=== PATIENT | female | born 1930 | race Caucasian/White ===

== ENCOUNTER → 2017-06-19 | Outpatient (CLI) | payer OTHER ==
[~2017-06-19] MED LIST: ASPIRIN ADULT L81 M1 PO; BACTRIM DS 8001 TA1 PO; FLUCONAZOLE100 MG PO; LISINOPRIL HCTZ1 TA1 PO; LISINOPRIL5 MG PO; MAGNESIUM OXID400 MG PO; MAGNESIUM400 MG PO; Nystatin Cream15 GM T; PYRIDIUM200 MG PO; VITAMIN D-32000 UNI1 PO
== END | disposition home or self-care (01) ==
LOC: RAD 14:21
DX: J44.9 Chronic obstructive pulmonary disease, unspecified (principal); F17.200 Nicotine dependence, unspecified, uncomplicated

== ENCOUNTER 2018-12-28 11:18 | Inpatient (IN) | payer OTHER ==
[~2018-12-28] VITALS: Ht 154.9 cm; Wt 53.6 kg
--- NOTE | ~2018-12-28 | PR ---
[place], [place] PROGRESS NOTE NAME: MODE FELDER UNIT #: [id number] ROOM: 507 DOCTOR: DARRYL ROSARIO MD BIRTHDATE: [birth year] DOS: 12/30/2018 SUBJECTIVE: The patient is still weak on the left side. OBJECTIVE: GENERAL APPEARANCE: The patient is alert and oriented x 3, in no visible distress. VITAL SIGNS: Blood pressure 124/84, breathing 16 times per minute, heart rate of 69 beats per minute, afebrile. HEENT AND NECK: Exam within normal limits. CARDIOVASCULAR SYSTEM: Heart rate is regular in rate and rhythm. S1 and S2 normally audible. LUNGS: Clear to auscultation. ABDOMEN: Soft, nontender. No obvious organomegaly. Bowel sounds are present. EXTREMITIES: Without significant cyanosis or edema. IMPRESSION: 1. The patient without any obvious brain mass, has been started on Eliquis by Cardiology for chronic atrial fibrillation. 2. Right occipital infarct with left hemiparesis. The patient working with Physical Therapy and needs to go to rehab. The patient was already on aspirin, which has been continued. 3. Urinary tract infection with Enterobacter intermedium, treated with ceftriaxone. 4. Chronic atrial fibrillation. Now, the patient is anticoagulated with apixaban. DARRYL ROSARIO MD CM:PNTRANS [id number] DARRYL ROSARIO MD 12/31/18 0410 interface
--- NOTE | ~2018-12-28 | PR ---
[place], [place] PROGRESS NOTE NAME: MODE FELDER UNIT #: [id number] ROOM: 507 DOCTOR: DARRYL ROSARIO MD BIRTHDATE: [birth year] DOS: 12/29/2018 SUBJECTIVE: The patient is weak on the left side and having difficulty with ambulation. OBJECTIVE: VITAL SIGNS: Blood pressure 146/50, heart rate of 66 beats per minute, breathing 16-18 times per minute, afebrile, temperature 98.1 degrees Fahrenheit. GENERAL APPEARANCE: The patient is alert and oriented x 3, in no visible distress. HEENT AND NECK: Exam within normal limits. CARDIOVASCULAR SYSTEM: Heart rate is regular in rate and rhythm. S1 and S2 normally audible. LUNGS: Clear to auscultation. ABDOMEN: Soft, nontender. No obvious organomegaly. Bowel sounds are present. EXTREMITIES: Without significant cyanosis or edema. NEUROLOGIC: Left hemiparesis. ASSESSMENT AND PLAN: 1. Acute right occipital infarct and left hemiparesis. The patient is working with Physical Therapy. I will also add occupational therapy to the treatment. 2. Possible occipital mass, which will be further evaluated with a contrast MRI of the brain as recommended by Radiology. 3. Urinary tract infection, gram-negative bacilli more than 100,000 colonies, is being treated with IV Rocephin. 4. Chronic atrial fibrillation. The patient is recommended anticoagulation if no brain mass is found on the MRI study. DARRYL ROSARIO MD CM:PNTRANS [id number] DARRYL ROSARIO MD 12/29/18 1749 interface
--- NOTE | ~2018-12-28 | PR ---
[place], [place] PROGRESS NOTE NAME: MODE FELDER UNIT #: [id number] ROOM: 507 DOCTOR: DARRYL ROSARIO MD BIRTHDATE: [birth year] DOS: 12/31/2018 SUBJECTIVE: The patient with stroke and left hemiparesis and disability. OBJECTIVE: VITAL SIGNS: Blood pressure 122/88, heart rate of 73 beats per minute, breathing normally, afebrile 98.2 degrees Fahrenheit. GENERAL APPEARANCE: Left-sided weakness. HEENT AND NECK: Exam within normal limits. CARDIOVASCULAR SYSTEM: Heart rate is regular in rate and rhythm. S1 and S2 normally audible. LUNGS: Clear to auscultation. ABDOMEN: Soft, nontender. No obvious organomegaly. Bowel sounds are present. EXTREMITIES: Without significant cyanosis or edema. IMPRESSION: 1. The patient with significant disability and difficulty with ambulation or even transfer, is waiting for residential transfer. 2. Right occipital acute infarct with disability. 3. Chronic atrial fibrillation with controlled heart rates with treatment. The patient now anticoagulated with apixaban. 4. Urinary tract infection with Enterobacter intermedium, treated with ceftriaxone. DARRYL ROSARIO MD CM:SHELDONTRANS 15 [phone] DARRYL ROSARIO MD 12/31/182050 interface
--- NOTE | ~2018-12-28 | EKG ---
[place], [place] ELECTROCARDIOGRAM REPORT NAME: MODE FELDER UNIT #: [id number] ROOM: 507 DOCTOR: ANSHUL DRAFT REPORT BIRTHDATE: [birth year] [facility] Test Date: 2018-12-28 Test Time: 12:01:32 Pat Name: MODE FELDER Department: Room: 7 Gender: F Publication Designer: Leyla Perez : 1930 Requested By: GREG MORRELL Order Number: [id number] Reading MD: Nick Doty MD Measurements Intervals [place] Rate: 55 P: CA: QRS: -14 QRSD: 76 T: 2 QT: 394 QTc: 377 Interpretive Statements Atrial fibrillation Inferior infarct, old No previous ECG available for comparison Electronically Signed On 12-30-2018 7:55:26 PDT by Nick Doty MD CM:EKGRPT:ELECTROCARDIOGRAM REPORT [id number] GREG MORRELL MD EPIPHANY DRAFT REPORT GREG MORRELL MD
--- NOTE | ~2018-12-28 | DS ---
[place], [place] DISCHARGE SUMMARY NAME: MODE FELDER UNIT #: [id number] ROOM: 507 DOCTOR: DARRYL ROSAIRO MD BIRTHDATE: [birth year] DOS: 12/28/2018 DISCHARGE DIAGNOSES: 1. 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 2. Ambulatory dysfunction. 3. Chronic atrial fibrillation. The patient is now anticoagulated with apixaban. 4. Urinary tract infection with Enterobacter intermedium, treated with IV antibiotics. HOSPITAL COURSE: The patient presented to the Emergency Department with left-sided weakness for several days. She had a completed right occipital infarct, which later on showed up on the MRI of the brain. The patient and family had decided against transfer to a stroke center or tertiary care facility. She wanted to be treated conservatively. The patient was admitted, worked with Physical Therapy and now arrangements have been completed to send her to [facility] for rehab. Right occipital acute infarct, which had completed because the patient had these symptoms and she was ignoring them for several days including inability to ambulate because she was living on her own. The patient has grade 5- weakness and incoordination on the left side from the right occipital infarct and she worked with Physical Therapy. Chronic atrial fibrillation. Cardiology was consulted and they found the patient appropriate for anticoagulation with apixaban, which was started. The patient was found to have urinary tract infection with Enterobacter intermediate, which was treated with IV Rocephin. DISCHARGE MANAGEMENT: Apixaban 2.5 mg b.i.d., aspirin 81 mg a day. Consult OT and PT, take fall precautions. [place], [place] DISCHARGE SUMMARY NAME: MODE FELDER UNIT #: [id number] ROOM: 507 DOCTOR: DARRYL ROSARIO MD BIRTHDATE: [birth year] DARRYL ROSARIO MD CM:DISCHARG [id number] DARRYL ROSARIO MD 01/02/19 0059 interface
--- NOTE | ~2018-12-28 | WRIGHTHP ---
[place], [place] PATIENT HISTORY AND PHYSICAL EXAM [id number] UNIT #: [id number] ROOM: 507 DOCTOR: DARRYL ROSARIO MD BIRTHDATE: [birth year] DOS: 12/28/2018 HISTORY OF PRESENT ILLNESS: The patient came into the Emergency Department with 3-day complaints of some difficulty with speech. Two days ago, the patient could not walk anymore. The patient lives by herself and was unable to get help. In the ER, the patient was found to have left-sided weakness and difficulty with ambulation. CAT scan of the head did not show any acute abnormality, but chronic small vessel ischemic changes. After a long discussion with the patient and her family, she decided not to be transferred to a tertiary care center, but be treated conservatively at [facility]. No chest pain, no GI or urinary symptoms. The patient's speech is normal. She is a little forgetful and she was also found to have a urinary tract infection. PAST MEDICAL HISTORY: History of chronic of chronic atrial fibrillation. REVIEW OF SYSTEMS: CARDIOVASCULAR SYSTEM: No chest pains or palpitations. GASTROINTESTINAL: No nausea, vomiting, diarrhea or constipation. RESPIRATORY: No increasing shortness of breath or wheezing. FAMILY HISTORY: Noncontributory. HOME MEDICATIONS: The patient takes aspirin at home and vitamin D. ALLERGIES: CODEINE. PHYSICAL EXAMINATION: GENERAL: Alert and oriented x 3, in no visible distress, generalized weakness. EXTREMITIES: Grade 5- weakness on the left side and unable to ambulate. LABORATORY DATA: CT of the head as mentioned above. Normal CBC. Hemoglobin is slightly low at 11. PT, PTT baseline. Normal serum electrolytes. IMPRESSION AND PLAN: 1. The patient apparently with left hemiparesis with grade 5- weakness, but normal speech and history of chronic of chronic atrial fibrillation. The patient was not anticoagulated because of her recurrent falls, but I am getting Cardiology consult to see what they would what Plavix versus anticoagulation with Coumadin or similar medication. 2. Left hemiparesis, inability to walk with grade 5- weakness. The patient was started on physical therapy and will require rehabilitation. 3. I will get an MRI of the brain tomorrow to look for the infarct. No signs of bleeding on CT of the head. 4. Chronic atrial fibrillation with controlled heart rates. Consider anticoagulation. Cardiology consulted. 5. Urinary tract infection to be treated with Rocephin. Urine cultures pending. [place], [place] PATIENT HISTORY AND PHYSICAL EXAM NAME: MODE FELDER UNIT #: [id number] ROOM: [facility] DOCTOR: DARRYL ROSARIO MD BIRTHDATE: [birth year] DARRYL ROSARIO MD CM:HISPHYS:PATIENT HISTORY AND PHYSICAL EXAMINATION 20 03 DARRYL ROSARIO MD 12/28/182202 interface
[2018-12-28 11:23] VITALS: BP 134/67
[2018-12-28 12:36] LABS: BASO % 0.6 % (0.0-1.0); EOS # 0.1 10*3/uL (0.0-0.4); HEMATOCRIT 35.4 % (37.0-47.0); LYMPH # 0.7 10*3/uL (1.3-4.4); LYMPH % 11.3 % (27.0-41.0); MEAN CELL VOLUME 91.9 fl (81.0-99.0); MEAN CORPUSCULAR HGB 28.6 pg (27.0-31.0); MEAN CORPUSCULAR HGB CONC 31.1 g/dl (33.0-37.0); MEAN PLATELET VOLUME 8.9 fl (9.6-12.3); MONO # 0.6 10*3/uL (0.1-1.0); MONO % 10.4 % (3.0-9.0); NEUT # 4.7 10*3/uL (2.3-7.9); NEUT % 76.4 % (47.0-73.0); PLATELET COUNT AUTOMATED 294 10*3/uL (130-400); RED BLOOD COUNT 3.85 10*6/uL (4.10-5.10); RED CELL DISTRI WIDTH 16.3 % (0-14.5); WHITE BLOOD COUNT 6.2 10*3/uL (4.8-10.8)
[2018-12-28 12:43] LABS: ACT PARTIAL THROMBO TIME 24.9 SECONDS (20.8-31.5)
[2018-12-28 12:46] VITALS: BP 126/76
[2018-12-28 12:52] LABS: ALBUMIN 2.6 gm/dl (3.1-4.5); ALKALINE PHOSPHATASE 93 U/L (45-117); BUN 16 mg/dl (7-24); CHLORIDE 103 mmol/L (98-107); CREATININE 0.94 mg/dL (0.55-1.02); POTASSIUM 5.1 mmol/L (3.5-5.1); SGOT/AST 19 IU/L (3-35); SGPT/ALT 12 U/L (12-78); SODIUM 137 mmol/L (136-145); TOTAL PROTEIN 6.8 gm/dL (6.4-8.2)
[2018-12-28 12:57] LABS: TROPONIN I < 0.015 ng/ml (<0.045)
[2018-12-28 13:07] LABS: BILIRUBIN NEGATIVE (NEGATIVE); CLARITY CLOUDY (CLEAR); COLOR YELLOW (YELLOW); GLUCOSE NEGATIVE (NEGATIVE); KETONE NEGATIVE (NEGATIVE); SPECIFIC GRAVITY 1.005 (1.005-1.030)
[2018-12-28 13:08] LABS: BLOOD 2+ (NEGATIVE); LEUKO ESTERASE 3+ (NEGATIVE); NITRITE POSITIVE (NEGATIVE); PH 7.5 (5.0-9.0); UROBILINOGEN 0.2 E.U./dl (0.2-1.0)
[2018-12-28 13:12] LABS: RBC TNTC rbc/hpf (0-2); WBC TNTC wbc/hpf (0-5)
[2018-12-28 13:13] LABS: BACTERIA 4+
[2018-12-28 14:48] VITALS: BP 140/71
--- NOTE | 2018-12-28 14:55 | NUR ---
A 88, admitted to 5E, under the services of Dr. ABRAHAM CALIXTO,DARRYL Jarquin with a diagnosis of UTI, AFIB, STROKE LIKE SYMPTOMS. Chief complaint is WEAKNESS. Patient arrived via bed from ER. Monitor applied. Initial assessment completed. Vital signs taken and recorded. DR. ABRAHAM CALIXTO,DARRYL Jarquin notified of admission to the unit. Orders received. See assessment for past medical history, medications and allergies. Patient and/or family oriented to unit. [address] visitation policy reviewed. Clothing/patient valuable form completed. SKIN INTACT WITH NO WOUNDS. FLU AND PNEUMONIA VACCINATIONS CURRENT. MARIANA MARTINEZ
[2018-12-28 16:00] VITALS: BP 154/83
--- NOTE | 2018-12-28 16:29 | NUR ---
Patient resting quietly with no c/o discomfort. Respirations easy and regular. Vital signs stable. No overt distress. CHARLI AGUIRRE
--- NOTE | 2018-12-28 18:17 | NUR ---
MESSAGE LEFT FOR DR MELENDEZ CONSULT.
[2018-12-28 20:00] VITALS: BP 133/65
--- NOTE | 2018-12-28 20:20 | NUR ---
PT RESTING IN BED. NO DISTRESS NOTED. WILL MONITOR
[2018-12-29] VITALS: BP 130/64
--- NOTE | 2018-12-29 06:15 | NUR ---
PT RESTING IN BED. NO DISTRESS NOTED. WILL MONITOR
--- NOTE | 2018-12-29 07:58 | NUR ---
PHYSICAL THERAPY Nursing screen received. PT orders also received. Thank you. Rose García,PT
[2018-12-29 08:00] VITALS: BP 160/74
[2018-12-29 12:00] VITALS: BP 146/50
--- NOTE | 2018-12-29 13:00 | NUR ---
PHYSICAL THERAPY Patient evaluated on 5, full evaluation to follow. Continue with PT as per plan of care with fall, alarms, severe screaming and apprehension with any mobility attempts and acute debility precautions. Will require SNF. PAtient is high complexity via chart review, tests and evaluation: [id number]. Thank you for this referral. Rose García,PT
--- NOTE | 2018-12-29 13:22 | NUR ---
Mortar Maker in to talk to patient. Patient states lives at HOME with ALONE. There are NO steps in the home. Physician: ABRAHAM Pharmacy: [facility] Home health services: NONE Patient's level of ADLs: INDEPENDENT Patient has working utilities: YES DME: NONE Follow-up physician's appointment after d/c: PREFERS TO MAKE HER OWN APPOINTMENT ON DISCHARGE Does patient want to access PORTAL?: NO Discharge plan [facility] FAMILY IN ROOM AND STATE PT NEEDS MORE HELP. THEY ARE THINKING ABOUT PT GOING TO [facility]. FIRST DAUGHTER IS REQUESTING A STAY AT [facility] HOWEVER HER INSURANCE IS OUT OF NENTWORK WITH [facility]. DAUGHTER INFORMED THAT HER CHOICES WERE [facility] [place] OR [facility] IN [place]. STATES SHE WANTS TO TALK IT OVER WITH HER SISTER AND WILL LET ME KNOW WHERE THEY WOULD LIKE HER TO GO. PT HAS NO OTHER NEEDS AT THIS TIME. WILL CONTINUE TO FOLLOW. . MARCOS POLLOCK
--- NOTE | 2018-12-29 13:26 | NUR ---
Occupational Therapy evaluation completed on 5 with full eval to follow. Precautions include fall risk,extreme fear of movement screaming out with fear, max +2 transfers, decreased LUE/LLE sensation and awareness of left, impaired ADls, mobility and high complexity level 26230 via chart review, testing and evaluation. Recommend OT per POC and inpatient rehab v.s. SNF to enable return home alone at independent level w/ wh walker. Thank you for this referral. Mayda Mcmullen OTR/L
[2018-12-29 16:00] VITALS: BP 141/77
--- NOTE | 2018-12-29 19:30 | NUR ---
UPON BEDSIDE REPORT, PATIENT ALERT AND VISITING WITH FAMILY. COOPERATIVE. CALL LIGHT WITHIN REACH. NO VOICED COMPLAINTS. BED ALARM MAINTAINED FOR SAFETY
[2018-12-29 20:00] VITALS: BP 148/66
--- NOTE | 2018-12-29 20:17 | NUR ---
24 HR chart check completed.
--- NOTE | 2018-12-29 21:30 | NUR ---
RESTING IN BED WITH NO ACUTE DISTRESS NOTED. RESPIRATIONS EASY. LUNGS DIMINISHED, CLEAR. PULSE OX 98% RA. LEFT TRUCK DRIVER INSTRUCTOR SLIGHTLY WEAKER THAN RIGHT. TRACE BLE EDEMA. CALL LIGHT WITHIN REACH. NO VOICED COMPLAINTS. BED ALARM MAINTAINED FOR SAFETY
--- NOTE | 2018-12-29 22:35 | NUR ---
PATIENT REPEATEDLY CLIMBING OOB. BECOMING AGITATED AND UNCOOPERATIVE WITH STAFF. DISORIENTED TO TIME AND PLACE, ADAMENT THAT SHE IS NOT IN THE HOSPITAL. 20 MINS SPENT ATTEMPTING TO REORIENT PATIENT WITH LITTLE SUCCESS. PATIENT ASSISTED TO BED FOR COMFORT AND BED ALARM APPLIED. CLOSE OBSERVATION MAINTAINED
[2018-12-30] VITALS: BP 142/72
--- NOTE | 2018-12-30 | NUR ---
RESTING WITH EYES CLOSED. RESPIRATIONS EASY. VSS. CALL LIGHT WITHIN REACH. BED ALARM MAINTAINED
--- NOTE | 2018-12-30 03:30 | NUR ---
AWAKE, RESTLESS. UNCOOPERATIVE WITH STAFF, CURSING. 1:1 PROVIDED IN ATTEMPTS TO REORIENT WITH LITTLE TO NO EFFECTIVENESS. BED ALARM MAINTAINED FOR SAFETY
--- NOTE | 2018-12-30 05:00 | NUR ---
REMAINS AWAKE, RESTLESS.
--- NOTE | 2018-12-30 06:00 | NUR ---
SLEEPING. BED ALARM MAINTAINED FOR SAFETY
--- NOTE | 2018-12-30 07:18 | NUR ---
In to see patient to discuss discharge options. Discussed acute rehab at [facility] to address stroke like symptoms and left sided weakness VS snf placement. Patient agreed to fax information. Contacted facility and faxed referral, will require precert.
[2018-12-30 08:00] VITALS: BP 114/70
--- NOTE | 2018-12-30 10:30 | NUR ---
PT OFF FLOOR TO MRI FOR HEAD SCAN.
--- NOTE | 2018-12-30 11:35 | NUR ---
PHYSICAL THERAPY Patient seen this am 1:1 for therapy visit and was supine in bed with her daughter Flaca present upon therapist arrival. Patient was very pleasant this morning, voicing no new c/o's and transfers supine to sit EOB with Min A. Patient tolerated static EOB sit x several minutes then performed several sit to stand transfers, Min A, requiring v/c for proper hand placement. Patient able to take 3-4 fwd/bkwd steps HEALTH CARE FACILITY ADMINISTRATOR/MIN but was tenative, however after a seated rest break attempted gait training with use of std walker, 15'x 1, CGA/Min, demonstrating very cautious alan, decreased stride and unsteady balance during 180 turn. Patient returned to supine in bed and remained with call light, tray table and cell phone. Will continue per POC as tolerated, total treatment time 14 minutes. Lm Leija, RESERVOIR ENGINEER
--- NOTE | 2018-12-30 11:42 | NUR ---
Daughter requesting referral to [facility] stating they called and were told patients insurance should be accepted there. Contacted facility and faxed referral. Will require precert.
--- NOTE | 2018-12-30 11:50 | NUR ---
OT NOTE Pt was seen this A.M. 1:1 for 20 minute OT session. Upon arrival pt was supine in bed. Pt identified by name and and had no complaints at this time. Pt transferred supine to sit EOB with Dunia. Sit to stand completed from bed level with Dunia X 2 and use of standard walker for UE support. Functional mobility completed around the room with CGA and use of standard walker. Challenged pt's dynamic sitting balance while having her weight shift, cross midline, and reach over all planes. Pt was able to maintain F+ sitting balance throughout. While sitting EOB challenged pt's semsory awareness while having pt tell what finger was being touched while eyes were closed. Tested with RUE first for full understanding with task presented. On R hand pt got 5/5 correct and on the L 3/5 correct. Pt transferred sit to supine with modA. Pt was left supine in bed with call light in hand, tray table in place, and bed alarm activated for safety. Continue with rec D/C plan to inpatient rehab versus SNF. DAYA Isaacs/Kobe
[2018-12-30 12:00] VITALS: BP 101/56
--- NOTE | 2018-12-30 12:17 | NUR ---
CASE MANAGEMENT IN TO SEE PT, DAUGHTER ENDER PRESENT, STATES THEY WANT [facility]. PMO BUSINESS ANALYST INFORMED.
--- NOTE | 2018-12-30 15:08 | NUR ---
[facility] is in network with patients insurance and will accept this patient. Family has requested a private room only and one will not be available until Saturday01/02/19 or Saturday01/03/19. Requires precert. Waiting for auth.
--- NOTE | 2018-12-30 15:45 | NUR ---
OCCUPATIONAL THERAPY CO-SIGN I approve of the Occupational Therapy notes written above. SHAW BARTH OTR/Kobe
[2018-12-30 15:57] VITALS: BP 108/56
[2018-12-30 20:00] VITALS: BP 124/84
[2018-12-31] VITALS: BP 132/63
[2018-12-31 08:00] VITALS: BP 138/70
--- NOTE | 2018-12-31 11:20 | NUR ---
OT NOTE Pt was seen this A.M. 1:1 for 23 minute OT session. Upon arrival pt was supine in bed. Pt identified by name and and had no complaints at this time. Pt transferred supine to sit EOB with Dunia. While sitting EOB challenged pt's dynamic sitting balance needed for increased I and enhanced safety while weight shifting, crossing midline, and reaching over all planes of motion. Pt was able to maintain G-/F+ sitting balance throughout. Multiple sit to stand transfers completed from bed level with Dunia X 2 and use of standard walker for UE support. Functional mobility completed around the room with CGA and use of standard walker. Pt had quick onset of fatigue requiring seated rest break breaks. While sitting EOB challenged pt's LUE sensation to touch. Trialed on R hand first to ensure proper understanding of instructions pt got 4/5 correct. On L hand with moderate amount of touch applied pt was able to get 2/5 correct. Pt transferred back into bed sit to supine with modA, There she was left with call light in hand, tray table in place, and bed alarm activated for safety. Continue with rec D/C plan to inpatient rehab versus SNF. DAYA Isaacs/Kobe
--- NOTE | 2018-12-31 11:25 | NUR ---
PHYSICAL THERAPY informed consent given, pt identified by name and . pt presented supine in bed. supine to sit SBA. STS and stand to sit x2 trials modA. Static standing balance 2min total: 1min with B UE supported by AD, the next minute 1 hand at side off of AD, SBA pt able to correct self with LOB. Walked 20ft standard walker CGA, v/c sequencing. Sit to supine Dunia, bed mobility maxAx2. Ended treatment pt supine in bed, call light and belongings in reach, bed alarm on. 1:1 treatment with DENTAL DETAIL REPRESENTATIVE 15min. RUSTAM MONTERO DENTAL DETAIL REPRESENTATIVE
[2018-12-31 12:00] VITALS: BP 126/76
--- NOTE | 2018-12-31 13:22 | NUR ---
Patient updated clinicals and therapy notes faxed to [facility] to start precert. waiting for auth.
--- NOTE | 2018-12-31 13:40 | NUR ---
REFERRAL SENT [facility] PER FAMILY REQUEST.
[2018-12-31 16:00] VITALS: BP 122/88
[2018-12-31 20:00] VITALS: BP 125/67
[2019-01-01] VITALS: BP 116/50
[2019-01-01 08:00] VITALS: BP 130/70
--- NOTE | 2019-01-01 09:53 | NUR ---
OT NOTE Pt was seen this A.M. 1:1 for 23 minute OT session. Upon arrival pt was supine in bed. Pt identified by name and and had complaints of mod pain in her LLE. Pt transferred supine to sit EOB with Dunia for assist with UB. Sit to stand completed from bed level with Dunia and use of standard walker for UE support. Functional mobility completed into the bathroom with CGA and use of standard walker, pt had two LOB that occured backwards that was corrected with Dunia. Pt required standing rest breaks throughout due to quick onset of fatigue. There she transferred on to standard commode with Dunia due to fear of falling and being "guarded". Clothing management completed with Dunia and toilet hygiene completed with supervision while seated. Pt then transferred off standard commode with modA due to low surface. Pt then stood sink side while washing her hands with CGA for safety. Functional mobility completed back to the EOB. Pt then transferred sit to supine with Dunia X 2. There she was left with call light in hand, tray table in place, and bed alarm activated for safety. Continue with rec D/C plan to inpatient rehab versus SNF. DAYA Isaacs/Kobe
--- NOTE | 2019-01-01 10:23 | NUR ---
PHYSICAL THERAPY informed consent given, pt identified by name and . pt presented supine in bed. supine to sit SBA. STS and stand to sit CGA v/c safe hand placement to avoid injury. walked 20ft x2 Dunia seated rests in between. first walk pt used standard walker requiring v/c for sequencing. Second walk pt used wh walker and had difficulty staying inside the JAYNE of the walker, requiring v/c for sequencing and direction. sit to supine modA, bed mobility maxAx2. Ended treatment pt supine in bed, call light and belongings in reach, bed alarm on. 1:1 treatment with FIRE EQUIPMENT INSPECTOR 20min RUSTAM MONTERO PTA
[2019-01-01 12:00] VITALS: BP 120/62
--- NOTE | 2019-01-01 12:03 | NUR ---
Patient has received auth for [facility] and can go if medically stable for discharge.
--- NOTE | 2019-01-01 13:03 | NUR ---
PT HAS RECIEVED AUTH FOR [facility] AND CAN GO WHEN MEDICALLY STABLE.
[2019-01-01 16:00] VITALS: BP 101/60
--- NOTE | 2019-01-01 16:01 | NUR ---
OCCUPATIONAL THERAPY CO-SIGN I approve of the Occupational Therapy notes written above. SHAW BARTH OTR/Kobe
[2019-01-01] MEDS ORDERED: ELIQUIS5 M1 PO (18:57)
--- NOTE | 2019-01-01 20:20 | NUR ---
PATIENT YELLING "YOU DUMB BH" UPON ENTERING ROOM. STATED TO PATIENT WHO I AM AND REPLIES "TO HELL YOU ARE, YOU ARENT TOUCHING ME. I HAVE THE DIRECTOR OF EARLY CHILDHOOD EDUCATION COMING ALL THE WAY FROM [place]" TRIED TO REORIENTED PATIENT. UNSUCCESSFUL. WILL NOT LET ME COMPLETE ASSESSMENT AT THIS TIME. SITTING UP IN CHAIR. BODY ALARM ON. WILL MONITOR.
--- NOTE | 2019-01-01 21:23 | NUR ---
NURSE TO NURSE REPORT GIVEN TO RN AT [facility] AT THIS TIME.
--- NOTE | 2019-01-01 22:05 | NUR ---
PATIENT RESTING OOB IN CHAIR AT THIS TIME. BODY ALARM ON. TOOK 2200 MEDICATION WITHOUT ISSUE.
--- NOTE | 2019-01-01 22:32 | NUR ---
PATIENT LEFT IN CARE OF [facility] AT THIS TIME. HEP LOCK WAS REMOVED AND PRESSURE DRESSING APPLIED. VERBALIZED UNDERSTANDING OF DISCHARGE INSTRUCTIONS.
--- NOTE | 2019-01-02 07:42 | NUR ---
PHYSICAL THERAPY CO-SIGN I approve of the Phyical Therapy notes written above. PARVEZ EUCEDA PT
== END 2019-01-01 22:33 | disposition other institution (70) | DRG 65 ==
LOC: ED 11:18 → EDHOLD 14:05 → 5E 14:05
PROVIDERS: Emergency Medicine; ADMIT Internal Medicine
DX: I63.89 Other cerebral infarction (principal); G81.94 Hemiplegia, unspecified affecting left nondominant side; E44.0 Moderate protein-calorie malnutrition; N30.00 Acute cystitis without hematuria; Z79.899 Other long term (current) drug therapy; Z66 Do not resuscitate; B96.89 Other specified bacterial agents as the cause of diseases classified elsewhere; Z51.5 Encounter for palliative care; R29.6 Repeated falls; I48.2 Chronic atrial fibrillation; E66.9 Obesity, unspecified; M19.90 Unspecified osteoarthritis, unspecified site; Z88.5 Allergy status to narcotic agent; Z68.22 Body mass index [BMI] 22.0-22.9, adult; Z87.440 Personal history of urinary (tract) infections; Z90.710 Acquired absence of both cervix and uterus; Z82.49 Family history of ischemic heart disease and other diseases of the circulatory system; Z79.82 Long term (current) use of aspirin

== ENCOUNTER 2019-04-13 07:34 | Emergency (ER) | payer OTHER ==
[~2019-04-13] VITALS: Ht 157.4 cm; Wt 60.3 kg
[~2019-04-13 07:34] MED LIST changes: +ELIQUIS5 M1 PO
[2019-04-13 07:41] VITALS: BP 156/83
== END 2019-04-13 09:32 | disposition home or self-care (01) ==
LOC: ED 07:34
DX: S00.83XA Contusion of other part of head, initial encounter (principal); S50.311A Abrasion of right elbow, initial encounter; I48.91 Unspecified atrial fibrillation; E66.9 Obesity, unspecified; Z86.73 Personal history of transient ischemic attack (TIA), and cerebral infarction without residual deficits; Z90.710 Acquired absence of both cervix and uterus; Z88.5 Allergy status to narcotic agent; Z79.82 Long term (current) use of aspirin; Z79.899 Other long term (current) drug therapy; W05.0XXA Fall from non-moving wheelchair, initial encounter; Y93.89 Activity, other specified; Y92.128 Other place in nursing home as the place of occurrence of the external cause; Y99.8 Other external cause status

== ENCOUNTER 2021-04-11 14:55 | Inpatient (IN) | payer MEDICARE ==
[~2021-04-11] VITALS: Ht 152.4 cm; Wt 62.6 kg
[2021-04-11 14:56] VITALS: BP 179/79
[2021-04-11 15:38] VITALS: BP 150/90
[2021-04-11 15:40] LABS: BASO % 0.6 % (0.0-1.0); EOS % 0.4 % (1.0-4.0); HEMATOCRIT 38.6 % (37.0-47.0); LYMPH # 0.5 10*3/uL (1.3-4.4); LYMPH % 9.8 % (27.0-41.0); MEAN CELL VOLUME 91.9 fl (81.0-99.0); MEAN CORPUSCULAR HGB 28.6 pg (27.0-31.0); MEAN CORPUSCULAR HGB CONC 31.1 g/dl (33.0-37.0); MEAN PLATELET VOLUME 9.5 fl (9.6-12.3); MONO # 0.1 10*3/uL (0.1-1.0); MONO % 2.2 % (3.0-9.0); NEUT # 4.7 10*3/uL (2.3-7.9); NEUT % 86.8 % (47.0-73.0); PLATELET COUNT AUTOMATED 235 10*3/uL (130-400); RED CELL DISTRI WIDTH 13.9 % (0-14.5); WHITE BLOOD COUNT 5.4 10*3/uL (4.8-10.8)
[2021-04-11 16:06] LABS: ALBUMIN 3.7 gm/dl (3.1-4.5); ALKALINE PHOSPHATASE 89 U/L (45-117); BUN 33 mg/dl (7-24); CHLORIDE 105 mmol/L (98-107); CREATININE 1.06 mg/dL (0.55-1.02); LIPASE 90 U/L (73-393); POTASSIUM 4.9 mmol/L (3.5-5.1); SGOT/AST 23 IU/L (3-35); SGPT/ALT 18 U/L (12-78); SODIUM 138 mmol/L (136-145); TOTAL PROTEIN 8.1 gm/dL (6.4-8.2)
[2021-04-11 16:24] LABS: TROPONIN I < 0.015 ng/ml (<0.045)
[2021-04-11 16:39] LABS: BILIRUBIN Negative (Negative); BLOOD 3+ (Negative); CLARITY Cloudy (Clear); COLOR Yellow (Yellow); GLUCOSE Negative (Negative); KETONE 1+ (Negative); LEUKO ESTERASE Negative (Negative); NITRITE Negative (Negative); PH 7.5 (4.5-8.0); SPECIFIC GRAVITY 1.015 (1.001-1.030)
[2021-04-11 17:11] LABS: BACTERIA 1+; EPITHELIAL CELLS 16-20; RBC TNTC rbc/hpf (0-2)
[2021-04-11 18:46] VITALS: BP 158/89
[2021-04-11 21:01] VITALS: BP 156/84
[2021-04-11 21:38] VITALS: BP 144/80
[2021-04-11] MEDS ORDERED: PHARMASSURE FO0.4 MG PO (22:28)
[2021-04-11] MEDS ORDERED: FERROUS SULFAT325 MG PO (22:29)
[2021-04-11] MEDS ORDERED: TYLENOL325 M1 PO (22:30)
[2021-04-11] MEDS ORDERED: ZOFRAN4 MG PO (22:31)
[2021-04-12] VITALS (9 sets, daily range): BP systolic 141–169; BP diastolic 62–96
[2021-04-12 05:39] LABS: BUN 26 mg/dl (7-24); CHLORIDE 111 mmol/L (98-107); CREATININE 0.97 mg/dL (0.55-1.02); POTASSIUM 4.1 mmol/L (3.5-5.1); SGOT/AST 22 IU/L (3-35); SGPT/ALT 14 U/L (12-78); SODIUM 140 mmol/L (136-145); TOTAL PROTEIN 6.8 gm/dL (6.4-8.2)
[2021-04-12 05:45] LABS: ALKALINE PHOSPHATASE 72 U/L (45-117); FREE T4 1.08 ng/dl (0.76-1.46)
[2021-04-12 06:55] LABS: BASO # 0.1 10*3/uL (0.0-0.1); BASO % 0.6 % (0.0-1.0); EOS % 0.5 % (1.0-4.0); HEMATOCRIT 34.5 % (37.0-47.0); LYMPH # 0.9 10*3/uL (1.3-4.4); LYMPH % 11.2 % (27.0-41.0); MEAN CELL VOLUME 92.2 fl (81.0-99.0); MEAN CORPUSCULAR HGB 28.9 pg (27.0-31.0); MEAN CORPUSCULAR HGB CONC 31.3 g/dl (33.0-37.0); MEAN PLATELET VOLUME 10.3 fl (9.6-12.3); MONO # 0.8 10*3/uL (0.1-1.0); NEUT # 6.1 10*3/uL (2.3-7.9); NEUT % 77.3 % (47.0-73.0); PLATELET COUNT AUTOMATED 235 10*3/uL (130-400); RED BLOOD COUNT 3.74 10*6/uL (4.10-5.10); WHITE BLOOD COUNT 7.9 10*3/uL (4.8-10.8)
[2021-04-13] VITALS: BP 116/55
[2021-04-13 06:04] LABS: BUN 24 mg/dl (7-24); CHLORIDE 112 mmol/L (98-107); CREATININE 1.01 mg/dL (0.55-1.02); SODIUM 141 mmol/L (136-145)
[2021-04-13 06:26] LABS: BASO % 0.7 % (0.0-1.0); EOS # 0.3 10*3/uL (0.0-0.4); EOS % 4.4 % (1.0-4.0); HEMATOCRIT 33.6 % (37.0-47.0); LYMPH # 1.2 10*3/uL (1.3-4.4); LYMPH % 19.6 % (27.0-41.0); MEAN CELL VOLUME 93.6 fl (81.0-99.0); MEAN PLATELET VOLUME 9.9 fl (9.6-12.3); MONO # 0.7 10*3/uL (0.1-1.0); MONO % 10.9 % (3.0-9.0); NEUT # 3.8 10*3/uL (2.3-7.9); NEUT % 62.9 % (47.0-73.0); PLATELET COUNT AUTOMATED 227 10*3/uL (130-400); RED BLOOD COUNT 3.59 10*6/uL (4.10-5.10); RED CELL DISTRI WIDTH 14.1 % (0-14.5)
[2021-04-13 08:00] VITALS: BP 134/57
[2021-04-13 12:00] VITALS: BP 130/66
[2021-04-13] MEDS ORDERED: ELIQUIS5 M1 PO (12:57)
[2021-04-13] MEDS ORDERED: BETHANECHOL CHL10 MG PO (13:02)
== END 2021-04-13 14:35 | DRG 640 ==
LOC: ED 14:55 → EDHOLD 18:06 → 4E 04-12 18:00
PROVIDERS: Emergency Medicine; Internal Medicine; ADMIT Internal Medicine; ATTEND Internal Medicine
DX: E86.0 Dehydration (principal); G93.41 Metabolic encephalopathy; I48.21 Permanent atrial fibrillation; N32.89 Other specified disorders of bladder; N26.1 Atrophy of kidney (terminal); K57.90 Diverticulosis of intestine, part unspecified, without perforation or abscess without bleeding; R80.9 Proteinuria, unspecified; R31.21 Asymptomatic microscopic hematuria; N18.31 Chronic kidney disease, stage 3a; Z86.73 Personal history of transient ischemic attack (TIA), and cerebral infarction without residual deficits; I51.7 Cardiomegaly; D64.9 Anemia, unspecified; E83.41 Hypermagnesemia; R03.0 Elevated blood-pressure reading, without diagnosis of hypertension; Z79.1 Long term (current) use of non-steroidal anti-inflammatories (NSAID); Z79.82 Long term (current) use of aspirin; Z79.899 Other long term (current) drug therapy; Z88.5 Allergy status to narcotic agent

== ENCOUNTER 2021-12-06 20:20 | Emergency (ER) | payer MEDICARE ==
[~2021-12-06] VITALS: Ht 160 cm; Wt 72.6 kg
[~2021-12-06 20:20] MED LIST changes: +BETHANECHOL CHL10 MG PO; +FERROUS SULFAT325 MG PO; +PHARMASSURE FO0.4 MG PO; +TYLENOL325 M1 PO; +ZOFRAN4 MG PO
[2021-12-06 20:21] VITALS: BP 175/88
[2021-12-06 20:55] LABS: BILIRUBIN Negative (Negative); BLOOD 2+ (Negative); CLARITY Cloudy (Clear); COLOR Yellow (Yellow); GLUCOSE Negative (Negative); KETONE Negative (Negative); LEUKO ESTERASE Trace (Negative); NITRITE Negative (Negative); PH 6.5 (4.5-8.0); SPECIFIC GRAVITY 1.015 (1.001-1.030)
[2021-12-06 21:04] LABS: RBC 51-100 rbc/hpf (0-2)
[2021-12-06 21:05] LABS: BACTERIA 1+; HYALINE CAST 0-2
== END 2021-12-07 00:34 | disposition home or self-care (01) ==
LOC: ED 20:20
PROVIDERS: Emergency Medicine
DX: M25.561 Pain in right knee (principal); M25.551 Pain in right hip; Z79.899 Other long term (current) drug therapy; Z88.5 Allergy status to narcotic agent; Z79.82 Long term (current) use of aspirin; W19.XXXA Unspecified fall, initial encounter; Y93.89 Activity, other specified; Y92.128 Other place in nursing home as the place of occurrence of the external cause; Y99.8 Other external cause status

== ENCOUNTER 2022-08-04 15:55 | Emergency (ER) | payer MEDICARE ==
[2022-08-04 16:49] LABS: BASO % 0.7 % (0.0-1.0); EOS # 0.1 10*3/uL (0.0-0.4); EOS % 2.2 % (1.0-4.0); HEMATOCRIT 40.2 % (37.0-47.0); LYMPH # 1.1 10*3/uL (1.3-4.4); LYMPH % 18.1 % (27.0-41.0); MEAN CELL VOLUME 88.4 fl (81.0-99.0); MEAN CORPUSCULAR HGB 27.9 pg (27.0-31.0); MEAN CORPUSCULAR HGB CONC 31.6 g/dl (33.0-37.0); MEAN PLATELET VOLUME 9.3 fl (9.6-12.3); MONO # 0.5 10*3/uL (0.1-1.0); MONO % 8.2 % (3.0-9.0); NEUT # 4.2 10*3/uL (2.3-7.9); NEUT % 70.6 % (47.0-73.0); PLATELET COUNT AUTOMATED 218 10*3/uL (130-400); RED BLOOD COUNT 4.55 10*6/uL (4.10-5.10); RED CELL DISTRI WIDTH 14.6 % (0-14.5)
[2022-08-04 17:10] LABS: CREATININE 1.26 mg/dL (0.55-1.02); POTASSIUM 4.1 mmol/L (3.5-5.1); TOTAL PROTEIN 7.8 gm/dL (6.4-8.2)
[2022-08-04 17:55] LABS: BILIRUBIN Negative (Negative); BLOOD Negative (Negative); CLARITY Clear (Clear); COLOR Yellow (Yellow); GLUCOSE Negative (Negative); KETONE Trace (Negative); LEUKO ESTERASE Trace (Negative); NITRITE Negative (Negative)
[2022-08-04 18:21] LABS: RBC 0-2 rbc/hpf (0-2)
[2022-08-04 18:24] LABS: BACTERIA TRACE
[2022-08-05 00:09] VITALS: BP 175/90
== END 2022-08-05 00:27 | disposition short-term general hospital (02) ==
LOC: ED 15:55
PROVIDERS: Nurse Practitioner Family
DX: K56.2 Volvulus (principal); Z88.8 Allergy status to other drugs, medicaments and biological substances; Z79.899 Other long term (current) drug therapy; Z79.82 Long term (current) use of aspirin; Z98.890 Other specified postprocedural states; Z90.710 Acquired absence of both cervix and uterus